=== PATIENT | male | born 1965 | race Hispanic/Latino ===

== ENCOUNTER 2017-12-18 09:32 | Emergency (ER) | payer OTHER, BC ==
[2017-12-18 09:44] VITALS: RESP 16
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
[2017-12-18 13:55] VITALS: BP 120/78; PULSE 74; TEMP 98
[2017-12-18 17:02] VITALS: O2SAT 100
== END 2017-12-18 13:15 | disposition home or self-care (01) ==
LOC: H.ER 09:32
DX: M54.9 Dorsalgia, unspecified (principal); W17.2XXA Fall into hole, initial encounter; Y92.410 Unspecified street and highway as the place of occurrence of the external cause; F17.210 Nicotine dependence, cigarettes, uncomplicated; M51.37 Other intervertebral disc degeneration, lumbosacral region